=== PATIENT | male | born 1995 | race Caucasian/White ===

== ENCOUNTER 2018-03-04 00:09 | Emergency (ER) | payer OTHER ==
[~2018-03-04] VITALS: Ht 175.3 cm; Wt 93.5 kg
[2018-03-04 00:13] VITALS: TEMP 37.4; Ht 175.3 cm; Wt 93.5 kg
[2018-03-04] MEDS ORDERED: ACETAMINOPHEN 500 MG TAB PO STA (00:32)
[2018-03-04] MEDS ORDERED: ONDANSETRON INJ 2 MG/ML 2 ML VIAL IV STA (00:32)
[2018-03-04] MEDS ORDERED: SODIUM CHLORIDE 0.9% 1000ML 1,000 ML IV STA (00:32)
--- NOTE | 2018-03-04 00:32 | EMERGENCY ROOM VISIT NOTE ---
History Report prepared by Lydia: Marla Ravi Under the Supervision of: Dr. Keerthi Boggs D.O. First contact with patient: 00:16 Chief Complaint: FLU LIKE SX Stated Complaint: ACHES,DIZZINESS,FEVER,PASSED OUT History of Present Illness The patient is a 22 year old male who presents to the Emergency Room with complaints of persistent flu like symptoms that started yesterday morning. The patient rates his pain a 6/10 in severity. The patient notes he woke up with aches all over his body and has been sleeping all day. He notes he woke up a couple of hours ago to use the bathroom he passed out. He states he did not feel dizzy on the way to the bathroom but while he was urinating he felt dizzy. He notes he remembers falling backwards against the wall and then woke up on the floor. He reports he hit his head on the wall and it took him a minute to figure out where he was when he woke up. He notes he felt fine yesterday. The patient denies being around anyone who has been sick recently. He states he is experiencing chills, weakness, fever, and nausea. The patient denies any cough, sore throat, congestion, or diarrhea. He notes he ate oatmeal around 5pm last night but did not eat anything else throughout the day. He states he took NyQuil before going to bed. Source of History: patient Onset: yesterday morning Position: other (global) Symptom Intensity: 610 Timing: other (persistent) Associated Symptoms: + fevers, + chills, + nausea, + weakness, No sorethroat , No cough, No diarrhea Note: Additional symptoms: syncope, dizziness. Denies: congestion. Review of Systems See HPI for pertinent positives & negatives. A total of 10 systems reviewed and were otherwise negative. Past Medical & Surgical No pertinent past medical or surgical history. Family History No pertinent family history Social History Smoking Status: Never Smoker Marital Status: single Current/Historical Medications Scheduled Citalopram Hydrobromide (Citalopram Hydrobromide), 20 MG PO DAILY Scheduled PRN Gaxjxzhnksbywzac-Etolousyho-Hv (Vicks Nyquil Cold & Flu), 1 CAP PO DIRECTED PRN for COLD SYMPTOMS Allergies Coded Allergies: No Known Allergies (Unverified , 03/04/18) Physical Exam Vital Signs Date Time Temp Pulse Resp B/P (MAP) Pulse Ox O2 Delivery O2 Flow Rate FiO2 03/04/18 03:37 71 16 104/52 97 03/04/18 02:41 63 18 111/53 98 Room Air 03/04/18 01:41 98 Room Air 03/04/18 01:38 57 16 113/48 72 126/58 78 105/56 03/04/18 00:55 67 03/04/18 00:13 37.4 79 18 111/58 93 Room Air Physical Exam GENERAL: alert, ill appearing, well nourished, no distress, non-toxic EYE EXAM: normal conjunctiva, PERRL and EOM's grossly intact OROPHARYNX: no exudate, no tonsillar hypertrophy, no erythema, lips, buccal mucosa, and tongue normal and mucous membranes are moist, no mucocutaneous lesions NECK: supple, no nuchal rigidity, no adenopathy, non-tender LUNGS: Clear to auscultation. Normal chest wall mechanics, no w/r/r HEART: no murmurs, S1 normal and S2 normal ABDOMEN: abdomen soft, non-tender, normo-active bowel sounds, no masses, no rebound or guarding. BACK: Back is symmetrical on inspection and there is no deformity, no midline tenderness, no CVA tenderness. SKIN: no rashes and no bruising, no petechiae UPPER EXTREMITIES: upper extremities are grossly normal. LOWER EXTREMITIES: No pitting edema. NEURO EXAM: Normal sensorium, normal speech, no gross weakness of arms, no gross weakness of legs, no ataxia, no facial droop Medical Decision & Procedures Laboratory Results Test 03/04/18 00:50 Influenza Type A Antigen Neg for Influ A (NEG) Influenza Type B Antigen Neg for Influ B (NEG) Laboratory results per my review. Medications Administered Medications (Trade) Dose Ordered Sig/Aamir Route Start Time Stop Time Status Last Admin Dose Admin Sodium Chloride 1,000 ml @ 999 mls/hr Q1H1M STAT IV 03/04/18 00:32 03/04/18 01:32 DC 03/04/18 00:47 999 MLS/HR Ondansetron HCl (Zofran Inj) 4 mg NOW STAT IV 03/04/18 00:32 03/04/18 00:33 DC 03/04/18 00:46 4 MG Acetaminophen (Tylenol Tab) 1,000 mg NOW STAT PO 03/04/18 00:32 03/04/18 00:33 DC 03/04/18 00:47 1,000 MG Sodium Chloride 500 ml @ 999 mls/hr Q31M STAT IV 03/04/18 02:44 03/04/18 03:14 DC 03/04/18 02:44 999 MLS/HR ED Course 0016: The patient was evaluated in room A3. A complete history and physical exam was performed. 0032: Tylenol Tab 1000 mg PO, Zofran Inj 4 mg IV, Sodium Chloride 1000 ml @ 999 mls/hr IV. 0128: Rechecked the patient and he is feeling better. He is taking PO and sitting up. Patient has a lot more energy. 0244: Sodium Chloride 500 ml @ 999 mls/hr IV. 0325: Upon reevaluation, the patient is feeling better. I discussed the findings and the treatment plan with the patient. He verbalizes agreement and understanding. The patient is ready for discharge. Medical Decision Differential diagnosis: Etiologies such as viral syndrome, otitis, pharyngitis, pneumonia, influenza, meningitis, urinary tract infection, sepsis, bacteremia, as well as others were entertained. Patient presentation consistent with likely influenza or other viral syndrome. Patient otherwise healthy young male, not immunocompromised, recent travel, or other infectious exposures. Patient markedly improved here with Tylenol and IV fluids. Able to tolerate by mouth following Zofran. Patient states since of "body aches" had improved also. Just with him adequate hydration, symptomatic treatment of fevers and body aches, symptoms to watch and return for, diet, he verbalized understanding was agreeable with plan. Patient's vital signs improved following IV fluids and patient are longer orthostatic. I do not suspect sepsis/bacteremia, I do not suspect underlying cardiac pathology area did patient's history and exam not consistent with meningitis/encephalitis and I did not feel he warranted a lumbar puncture. No symptoms to suggest strep throat or occult pneumonia. Patient with no risk factors for endocarditis. Patient with no GI symptoms or abdominal tenderness to suggest other underlying GI pathology. Patient with no other concerning rash. Did not feel patient's questionable mild closed head injury warranted additional imaging. Patient with no other symptoms here concerning for occult intracranial hemorrhage or expanding hematoma while observed here. Patient not anticoagulated or otherwise high risk for intracranial hemorrhage. No physical exam evidence of significant trauma. Patient markedly improved by time of discharge, mother comfortable taking him home. All questions answered bedside. Patient agreeable with plan. Medication Reconcilliation Current Medication List: was personally reviewed by me Impression Primary Impression: Influenza-like symptoms Additional Impression: Dehydration Scribe Attestation The scribe's documentation has been prepared under my direction and personally reviewed by me in its entirety. I confirm that the note above accurately reflects all work, treatment, procedures, and medical decision making performed by me. Departure Information Dispostion Home / Self-Care Referrals No Doctor, Assigned (PCP) Patient Instructions My [facility] Additional Instructions Please try to sip clear liquids at frequent intervals to stay well-hydrated. You may use Tylenol and ibuprofen as needed for body aches or fevers. You may not have a normal appetite for a few days, you may eat little bits as tolerated. If you developing worsening pain, or fevers do not respond to Tylenol or ibuprofen, you develop vomiting, diarrhea, cough, trouble breathing, worsening headache or neck pain, dizziness, vision changes, rash or sores, or you have any other new concerns, please return the emergency room. Problem Qualifiers
[2018-03-04] MEDS ORDERED: CITA20TA4 PO (00:59)
[2018-03-04] MEDS ORDERED: DEXT1CAP8 PO (00:59)
[2018-03-04 01:20] LABS: INFLUENZA B ANTIGEN Neg for Influ B (NEG)
[2018-03-04] MEDS ORDERED: SODIUM CHLORIDE 0.9% 500ML 500 ML IV STA (02:44)
[2018-03-04 03:37] VITALS: BP 104/52; PULSE 71; O2SAT 97
== END 2018-03-04 03:38 | disposition home or self-care (01) ==
LOC: C.EDB 00:11 → C.EDA 03:38
DX: M79.1 Myalgia (principal); R55 Syncope and collapse; R50.9 Fever, unspecified; R11.0 Nausea; R53.1 Weakness; E86.0 Dehydration